=== PATIENT | female | born 1965 | race Caucasian/White ===

== ENCOUNTER 2018-07-17 11:18 | Emergency (ER) | payer BC ==
--- NOTE | 2018-07-17 11:53 | ED ---
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 Sister states that patient hit her head upon falling from the syncope. The patient rates the pain 0/10 in severity. Symptoms aggravated by nothing. Symptoms alleviated by nothing. Patient denies chest pain, SOB, headache, dizziness, nausea, and vomiting. Patient fell upon syncope and landed with her head underneath a cabinet. Patient states she has not eaten yet today but is not diabetic. Pt feels that she is back to normal. Pt has several psychiatric medications and states she has taken them as directed. Pt is scheduled to have obesity surgery at [facility] soon. Vital signs while in room: HR 77 bpm, BP 155/84, O2 sat of 98%, and temp of 98 F. Home Medications Medication Instructions Recorded Confirmed Type Levothyroxine TAB* 150 mcg PO DAILY 06/27/13 06/15/15 History Venlafaxine ER (NF) [Effexor ER 225 mg PO DAILY 06/27/13 06/15/15 History (NF)] Aspirin [Aspirin 81] 81 mg PO DAILY 09/28/13 06/15/15 History traZODone TAB* 200 mg PO BEDTIME 09/09/14 06/15/15 History Methylphenidate TAB* 76 mg PO DAILY 06/15/15 06/15/15 History oxyCODONE/Acetamin 5/325 MG* 1 tab PO Q6H PRN #20 tab MDD 4 03/01/16 Rx [Percocet 5/325 TAB*] ARIPiprazole TAB* [Abilify TAB*] 07/11/16 History Zolpidem TAB* [Ambien*] 10 mg PO PRN 07/14/18 History - History Of Current Complaint Chief Complaint: EDSyncope Time Seen by Provider: 07/17/18 11:38 Hx Obtained From: Patient, Family/Lens Coating Technician - sister Onset/Duration: Sudden Onset, Lasting Minutes, Resolved Timing: Intermittent Episode Lasting - A few seconds Context: Witnessed, Loss Of Consciousness Activity At Onset: Other - standing, visiting brother in the hospital Associated Head Trauma: Yes Aggravating Factor(s): Nothing Alleviating Factor(s): Nothing Associated Signs And Symptoms: Other - Negative chest pain, SOB, headache, dizziness, nausea, and vomiting Frequency: Episodes x___ - 1, Episodes Lasting ____ (in Mins/Days/Weeks/Years) - a few seconds - Allergies/Home Medications Allergies/Adverse Reactions: Allergies Allergy/AdvReac Type Severity Reaction Status Date / Time naproxen Allergy Itching Verified 07/17/18 14:16 Sulfa (Sulfonamide Allergy Hives Verified 07/17/18 14:16 Antibiotics) PMH/Surg Hx/FS Hx/Imm Hx Previously Healthy: No Endocrine/Hematology History: Reports: Hx Thyroid Disease Denies: Hx Diabetes Cardiovascular History: Denies: Hx Hypertension, Hx Pacemaker/ICD Respiratory History: Reports: Hx Seasonal Allergies Denies: Hx Asthma, Hx Chronic Bronchitis, Hx Chronic Obstructive Pulmonary Disease (COPD), Hx Cystic Fibrosis, Hx Lung Cancer, Hx Pleural Effusion, Hx Pneumonia, Hx Pulmonary Edema, Hx Pulmonary Embolism, Hx Sleep Apnea, Other Respiratory Problems/Disorders GI History: Reports: Hx Gall Bladder Disease - cholecystectomy, Other GI Disorders - obesity Denies: Hx Ulcer History: Denies: Hx Renal Disease Comment Only: Other Problems/Disorders - hematuria Musculoskeletal History: Reports: Hx Arthritis Sensory History: Reports: Hx Contacts or Glasses Denies: Hx Cataracts, Hx Eye Injury, Hx Eye Prosthesis, Hx Glaucoma, Hx Legally Blind, Hx Macular Degeneration, Hx Vision Problem, Hx Deafness, Hx Hearing Aid, Hx Hearing Problem, Other Sensory Impairments Opthamlomology History: Reports: Hx Contacts or Glasses Denies: Hx Cataracts, Hx Eye Injury, Hx Eye Prosthesis, Hx Glaucoma, Hx Legally Blind, Hx Macular Degeneration, Hx Vision Problem, Other Sensory Impairments Psychiatric History: Reports: Hx Anxiety, Hx Attention Deficit Hyperactivity Disorder, Hx Depression, Hx Community Mental Health Tx, Hx Suicide Attempt Denies: Hx Eating Disorder, Hx Panic Disorder, Hx of Violent Episodes Against Others - Cancer History Hx Chemotherapy: No Hx Radiation Therapy: No - Surgical History Surgery Procedure, Year, and Place: 2009 hysterectomy. 2000 cholecystectomy. c -section x2 1998 & 2001. 2003 tubal ligation Hx Anesthesia Reactions: No Infectious Disease History: No Infectious Disease History: Reports: Hx of Known/Suspected MRSA - Right Underarm Denies: Hx Hepatitis, Hx Human Immunodeficiency Virus (HIV), Hx Tuberculosis , History Other Infectious Disease, Traveled Outside the [place] in Last 30 Days - Family History Known Family History: Positive: Diabetes, Renal Disease - MOTHER GETS FREQUEST UTIS, Other - [place] - Social History Occupation: Employed Full-time Lives: With Family Alcohol Use: None Alcohol Amount: cinnamon schnapps Hx Substance Use: No Substance Use Type: Reports: None Substance Use Comment - Amount & Last Used: Unknown Hx Tobacco Use: Yes Smoking Status (MU): Heavy Every Day Tobacco Smoker Type: Cigarettes Amount Used/How Often: 1/2 PPD Length of Time of Smoking/Using Tobacco: 30 Have You Smoked in the Last Year: Yes Review of Systems Constitutional: Negative Cardiovascular: Negative Respiratory: Negative Negative: Vomiting, Nausea Neurological: Other - Negative dizziness Positive: Syncope. Negative: Headache Psychological: Normal All Other Systems Reviewed And Are Negative: Yes Physical Exam - Summary Physical Exam Summary: Appearance: Well-appearing, moderate pain distress, well-nourished Skin: Warm, color reflects adequate perfusion, dry. Abrasion 5 cm over left scapula Head: Posterior occipital 3 cm hematoma, not bleeding, nontender on palpation Eyes: Conjunctiva clear, PERRL, EOMI, no nystagmus ENT: Normal inspection Neck: Supple, no nodes, no JVD, no spinal tenderness Respiratory: Lungs clear, normal breath sounds, no respiratory distress Cardio: RRR, No murmur, pulses normal, brisk capillary refill Abdomen: Soft, nontender Bowel sounds: Present Musculoskeletal: Strength Intact/ROM intact, no calf tenderness, no edema, no spinal tenderness . Psychological: Normal Neuro: Alert, muscle tone normal, no focal deficit, moves all extremities well, sensation intact, speech normal GCS: 15 NIH Stroke Scale: 0 Triage Information Reviewed: Yes Vital Signs On Initial Exam: Initial Vitals Temp Pulse Resp BP Pulse Ox 98.0 F 67 14 121/86 97 07/17/18 11:22 07/17/18 11:22 07/17/18 11:22 07/17/18 11:22 07/17/18 11:22 Vital Signs Reviewed: Yes - [place] Coma Scale Best Eye Response: 4 - Spontaneous Best Motor Response: 6 - Obeys Commands Best Verbal Response: 5 - Oriented Coma Scale Total: 15 Diagnostics - Vital Signs Vital Signs Temp Pulse Resp BP Pulse Ox 07/17/18 11:22 98.0 F 67 14 121/86 97 - Laboratory Result Diagrams: 07/17/18 11:55 07/17/18 11:55 Lab Statement: Any lab studies that have been ordered have been reviewed, and results considered in the medical decision making process. - Radiology Shoulder XR Radiology Interpretation Completed By: Radiologist Summary of Radiographic Findings: Shoulder XR reveals, per radiologist, no evidence for fracture. ED physician has reviewed this radiology report. CXR Radiology Interpretation Completed By: Radiologist Summary of Radiographic Findings: CXR reveals, per radiologist, no evidence for active cardiopulmonary disease. ED physician has reviewed this radiology report. - CT Brain CT CT Interpretation Completed By: Radiologist Summary of CT Findings: Brain CT reveals, per radiologist, no evidence for acute intracranial abnormality. ED physician has reviewed this radiology report. - EKG 1155 Cardiac Rate: Bradycardia EKG Rhythm: Sinus Rhythm - [address] Segment: Non-Specific Ectopy: None EKG Comparison: No Significant Change - Since EKG taken on 06/16/2015 Summary of EKG Findings: An EKG at 1155 reveals sinus bradycardia at 57 with nml AV/IV CT, nml QTc, and nml axis. No significant change from EKG taken on . Re-Evaluation - Re-Evaluation First Eval Re-Evaluation Time: 14:00 Change: Improved Comment: She feels good. Patient's sister Jacqui is still with her and reports patient is back to baseline. 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 Physical Exam Findings: Abrasion 5 cm over left scapula. Posterior occipital 3 cm hematoma, not bleeding, nontender. An EKG at 1155 reveals sinus bradycardia at 57 with nml AV/IV CT, nml QTc, and nml axis. No significant change from EKG taken on 06/16/15. Shoulder XR reveals, per radiologist, no evidence for fracture. CXR reveals, per radiologist, no evidence for active cardiopulmonary disease. Brain CT reveals, per radiologist, no evidence for acute intracranial abnormality. Bloodwork obtained. Patient will be discharged with follow up from Dr. Sánchez. The patient is agreeable with this plan. - Diagnoses Differential Diagnosis/HQI/PQRI: Positive: Cerebral Vascular Accident, Coronary Artery Disease, Hyperventilation, Hypoglycemia, Hypovolemia, Metabolic Reaction , Myocardial Infarction, Medication Reaction, Pulmonary Embolism, Seizure, Transient Ischemic Attack, Vasovagal Episode Provider Diagnoses: Syncope, Head injury, Contusion of left shoulder Discharge - Sign-Out/Discharge Documenting (check all that apply): Patient Departure - Discharge home - Discharge Plan Condition: Stable Disposition: HOME Patient Education Materials: Syncope (ED) Referrals: Brad Sánchez MD [Primary Care Provider] - 2 Days Additional Instructions: We did not find any serious abnormalities on our evaluation of your syncope ( passing out spell today.) We have given you a copy of all of the tests that were done on you today. You should follow up with Dr. Sánchez in the next two days to let him know this occurred. Return to the ER if you have any new or worsening symptoms. - Billing Disposition and Condition Condition: STABLE Disposition: Home - Attestation Statements Document Initiated by Kailyn: Yes Documenting Scribe: Caron Bain Provider For Whom Andradee is Documenting (Include Credential): Dr. Chasidy Mc MD Scribe Attestation: Caron Rodriguez, scribed for Dr. Chasidy Mc MD on 07/18/18 at 0219. Scribe Documentation Reviewed: Yes Provider Attestation: The documentation as recorded by the Caron peña accurately reflects the service I personally performed and the decisions made by me, Dr. Chasidy Mc MD
[2018-07-17 12:07] LABS: ABS Basophils 0.1 10^3/ul (0-0.2); ABS Eosinophils 0.1 10^3/ul (0-0.6); ABS Lymphocytes 1.8 10^3/ul (1.0-4.8); ABS Monocytes 0.4 10^3/ul (0-0.8); ABS Neutrophils 2.9 10^3/ul (1.5-7.7); ABS Nucleated RBC 0 10^3/ul; Eosinophil % 2.7 % (0-6); Hematocrit 40 % (35-47); Hemoglobin 13.3 g/dl (12.0-16.0); Lymphocyte % 34.2 % (25-47); Mean Corpuscular HGB Conc 34 g/dl (31-36); Mean Corpuscular Hemoglobin 32 pg (27-31); Mean Corpuscular Volume 96 fL (80-97); Mean Platelet Volume 9.3 um3 (7.4-10.4); Nucleated Red Blood Cells % 0.1; Platelet Count 238 10^3/ul (150-450); Red Blood Count 4.12 10^6/ul (4.00-5.40); Red Cell Distribution Width 13 % (10.5-15); White Blood Count 5.3 10^3/ul (3.5-10.8)
[2018-07-17 12:15] LABS: INR 0.93 (0.77-1.02)
[2018-07-17 12:24] LABS: EGFR Non-African American 75.6 (>60)
--- NOTE | 2018-07-17 12:30 | RAD ---
INDICATION: Left shoulder injury. TECHNIQUE: 4 views of the left shoulder were obtained. FINDINGS: The bones are in normal alignment. No fracture is seen. Joint spaces appear maintained. IMPRESSION: NO EVIDENCE OF FRACTURE.
--- NOTE | 2018-07-17 12:32 | RAD ---
INDICATION: Syncope. COMPARISON: Comparison is made with a prior study from September 09, 2014. TECHNIQUE: Dual-energy PA and lateral views of the chest were obtained. FINDINGS: The heart is within normal limits in size. Mediastinal and hilar contours appear within normal limits. The lungs are clear. No pleural effusion is present. IMPRESSION: NO EVIDENCE FOR ACTIVE CARDIOPULMONARY DISEASE.
--- NOTE | 2018-07-17 12:42 | RAD ---
INDICATION: Syncope. COMPARISON: There are no relevant prior studies available for comparison. TECHNIQUE: Contiguous axial sections of the brain were obtained from the skull base to the vertex without contrast. FINDINGS: The ventricles, cisterns and sulci are within normal limits. No significant focal abnormality or mass effect is seen. There is no evidence for hemorrhage. No significant focal osseous abnormality is seen. The visualized portion of the paranasal sinuses and mastoid air cells appear clear. IMPRESSION: NO EVIDENCE FOR ACUTE INTRACRANIAL ABNORMALITY.
[2018-07-17 13:07] VITALS: BP 121/78
== END 2018-07-17 14:17 | disposition home or self-care (01) ==
LOC: ED 11:18
DX: S09.90XA Unspecified injury of head, initial encounter (principal); R55 Syncope and collapse; S40.012A Contusion of left shoulder, initial encounter; F17.210 Nicotine dependence, cigarettes, uncomplicated; W19.XXXA Unspecified fall, initial encounter; Y92.239 Unspecified place in hospital as the place of occurrence of the external cause; E07.9 Disorder of thyroid, unspecified
CPT/HCPCS: 36415; 70450; 71046; 80053; 80320; 82140; 83605; 83735; 83880; 84443; 84484; 85025; 85379; 85610; 85730; 93005; 99283; G0480

== ENCOUNTER 2018-08-30 11:48 | Inpatient (IN) | payer BC ==
[~2018-08-30 11:48] MED LIST: Buffered Lidocaine 0.9% SYRIN* 5 ML/SYR SYRINGE INTRADERM ONE; Dexamethasone IV* 4 MG/ML 1 ML (4 MG) IV SLOW PU ONE; Famotidine IV* 10 MG/ML 2 ML (20 mg) IV ONE
[2018-08-30] MEDS ORDERED: Heparin VIAL(*) 5000 UNITS/ML VIAL (FIVE THOUSAND) ONE (12:17)
[2018-08-30] MEDS ORDERED: ceFAZolin 1 GM ADVAN(*) 1 GM ADDV.VIAL IVPB ONE (12:18)
[2018-08-30] MEDS ORDERED: ceFAZolin 2 GM PREMIX in ORs 2 GM/50 ML BAG IVPB ONE (12:18)
[2018-08-30] MEDS ORDERED: Famotidine IV* 10 MG/ML 2 ML (20 mg) ONE (12:18)
[2018-08-30] MEDS ORDERED: Clindamycin 900 MG/D5W BAG(*) 900 MG/50 ML BAG IVPB ONE (12:18)
[2018-08-30] MEDS ORDERED: Dexamethasone IV* 4 MG/ML 1 ML (4 MG) ONE ×2 (12:18→12:29)
[2018-08-30] MEDS ORDERED: Propofol* 10 MG/ML 20 ML BTL ONE (12:34)
[2018-08-30] MEDS ORDERED: Atracurium* 10 MG/ML 10 ML VIAL ONE (12:34)
[2018-08-30] MEDS ORDERED: Midazolam* 1 MG/ML 2 ML VIAL (2 MG) ONE (12:34)
[2018-08-30] MEDS ORDERED: fentaNYL* 50 MCG/ML 2 ML VIAL (100 MCG VIAL) ONE ×3 (12:34→16:06)
[2018-08-30] MEDS ORDERED: Lidocaine 2% PF * 5 ML VIAL ONE (12:34)
[2018-08-30] MEDS ORDERED: fentaNYL* 50 MCG/ML 5 ML VIAL (250 MCG VIAL) ONE (13:12)
[2018-08-30] MEDS ORDERED: Bupivacaine 0.25% EPI 200,000* 30 ML SDV ONE (14:05)
[2018-08-30] MEDS ORDERED: PROCHLORPERAZINE INJ 5 MG/ML 2 ML VIAL IV PRN (14:57)
[2018-08-30] MEDS ORDERED: Morphine VIAL* 4 MG/ML VIAL (1 ml vial) IV PRN (14:57)
[2018-08-30] MEDS ORDERED: Ketorolac INJ* 30 MG/ML 1 ML VIAL IV PRN (14:57)
[2018-08-30] MEDS ORDERED: DiMENhydriNATE IV* 50 MG/ML VIAL IV PUSH PRN (14:57)
[2018-08-30] MEDS ORDERED: Naloxone* 0.4 MG/ML 1 ML VIAL IV PRN (14:57)
[2018-08-30] MEDS ORDERED: Acetaminophen IV 1GM/100ML * 1,000 MG/100 ML VIAL IVPB ONE (14:57)
[2018-08-30] MEDS ORDERED: Neostigmine Methylsulfate* 1 MG/ML 10 ML VIAL (1 mg/ml) ONE (15:13)
[2018-08-30] MEDS ORDERED: Glycopyrrolate IV* 0.2 MG/ML 1 ML VIAL ONE (15:13)
[2018-08-30] MEDS ORDERED: Ondansetron INJ* 2 MG/ML VIAL ONE (15:21)
[2018-08-30] MEDS ORDERED: Acetaminophen ADULT LIQ* 650 MG/20.3 ML UDC PO PRN (15:34)
[2018-08-30] MEDS ORDERED: HYDROmorphone INJ* 0.5 MG/0.5 ML SYRINGE IV PRN (15:34)
[2018-08-30] MEDS ORDERED: Ondansetron INJ* 2 MG/ML VIAL IV PRN (15:34)
--- NOTE | 2018-08-30 15:34 | OP ---
Operative Report - Blank - Operative Report Date of Operation: 08/30/18 Note: Brief Operative Note Preop Dx: Morbid Obesity Postop Dx: same Procedure: Laparoscopic sleeve gastrectomy Anesthesia: GET Surgeon: Mikayla Solar Maintenance Technician: CEE Barnett Fluids: 1200 ml RL EBL: < 25 ml Specimen: portion stomach Drains: none Findings: dictated
[2018-08-30] MEDS ORDERED: Ketorolac INJ* 30 MG/ML 1 ML VIAL ONE (15:38)
[2018-08-30] MEDS ORDERED: Acetaminophen IV 1GM/100ML * 100 ML ONE (15:39)
[2018-08-30] MEDS ORDERED: Levothyroxine INJ* 100 MCG in D5W 250 ML BAG* 250 ML IV SCH (16:00)
[2018-08-30] MEDS: fentaNYL* 50 MCG/ML 2 ML VIAL (100 MCG VIAL) IV PRN ×2 (16:06→16:38)
--- NOTE | 2018-08-30 21:26 | OP ---
CC: Brad Sánchez MD; [facility] * DATE OF OPERATION: 08/30/18 - ROOM #353 DATE OF : 69 SURGEON: Moi Degroot MD TELEVISION ANTENNA INSTALLER: CEE Pisano ANESTHESIOLOGIST: Dr. Hickey. ANESTHESIA: General endotracheal. PRE-OP DIAGNOSIS: Chronically severe obesity. POST-OP DIAGNOSIS: Chronically severe obesity. OPERATIVE PROCEDURE: Laparoscopic sleeve gastrectomy. ESTIMATED BLOOD LOSS: Minimal. IV FLUIDS: 1200 mL crystalloids. SPECIMEN: Portion of the stomach. DRAINS: None. COMPLICATIONS: None. COUNTS: The instrument, needle, and sponge counts were correct. DESCRIPTION OF PROCEDURE: The patient was brought to the operating room and placed on the table supine. Sequential compression devices were placed on both lower extremities and general anesthesia was administered. She was positioned and padded appropriately. She was prepped and draped in the usual sterile fashion. Time-out was performed. Local anesthetic was infiltrated into the skin and soft tissue prior to making each incision. Entry to the abdomen was through the left upper quadrant incision accommodating a 5-mm optical trocar. After accessing the peritoneal cavity, carbon dioxide was insufflated to a pressure of 15 mmHg. Under direct visualization, a 12- mm bladeless trocar was then placed in the right upper quadrant supraumbilical midline. A Alexandra liver retractor was placed percutaneously in the subxiphoid position, used to elevate the left lobe of the liver. A 5-mm trocar was placed laterally in the left upper quadrant. Inspection of the viscera revealed normal-appearing liver, normal-appearing stomach. No evidence of hiatal hernia and the decision was to proceed. The pylorus was identified and 6 cm proximal to this on the greater curvature, LigaSure was used to skeletonize the stomach. Lesser sac was entered and additionally, the vision of the short gastric was completed including posterior short gastric up at the cardia of the stomach. A series of staple firings were used in the Endo OSMAN staple with purple reinforced staple cartridges was then performed to create a sleeve gastrectomy over a 40- Irish bougie. Staple lines were subsequently inspected, noted to be hemostatic and intact. The transected portion of the stomach was placed to retrieval bag and retrieved through the right upper quadrant wound. Hemostasis was assured. Ports and Alexandra liver retractor were removed under direct visualization and carbon dioxide was released. Skin incisions were closed with 4-0 Monocryl in subcuticular fashion. Steri-Strips were applied. The patient tolerated this procedure well, was extubated and transferred to the recovery room in stable condition. [id number]/[facility] #: [id number] MTDD
[2018-08-30] MEDS: HYDROmorphone INJ1* 1 MG/ML SYRINGE IV PRN (22:02)
[2018-08-30] MEDS: Famotidine IV* 10 MG/ML 2 ML (20 mg) IV SLOW PU SCH (22:13)
[2018-08-30] MEDS: Heparin VIAL(*) 5000 UNITS/ML VIAL (FIVE THOUSAND) SUBCUT SCH (22:15)
[2018-08-30] MEDS: Ketorolac INJ* 30 MG/ML 1 ML VIAL IV PRN (22:18)
[2018-08-31] MEDS: Ketorolac INJ* 30 MG/ML 1 ML VIAL IV PRN ×2 (04:40→12:49)
[2018-08-31] MEDS: Heparin VIAL(*) 5000 UNITS/ML VIAL (FIVE THOUSAND) SUBCUT SCH ×3 (05:44→21:32)
[2018-08-31] MEDS ORDERED: Levothyroxine INJ* 100 MCG/5 ML VIAL IV SCH (09:00)
[2018-08-31] MEDS: HYDROmorphone INJ1* 1 MG/ML SYRINGE IV PRN (10:04)
[2018-08-31] MEDS: Famotidine IV* 10 MG/ML 2 ML (20 mg) IV SLOW PU SCH ×2 (10:04→21:26)
--- NOTE | 2018-08-31 12:00 | PN ---
Progress Note - Progress Note Date of Service: 08/31/18 Note: S: POD #1. Doing well. Pain controlled. Lenin emerald clear liqs well thus far. No N/ V. Current Medications Acetaminophen (Tylenol Adult Liq*) 650 mg PO Q6H PRN PRN Reason: Temp > 101 F Or Mild Pain Hydrocodone Bitart/Acetaminophen (Nortab 7.5/325 Liq*) 15 ml PO Q6H PRN PRN Reason: PAIN Aripiprazole (Abilify Tab*) 5 mg PO QAM KO Famotidine (Pepcid Iv*) 20 mg IV SLOW PU BID KO Last Admin: 08/31/18 10:04 Dose: 20 mg Heparin Sodium (Porcine) (Heparin Vial(*)) 5,000 units SUBCUT Q8HR KO Last Admin: 08/31/18 05:44 Dose: 5,000 units Hydromorphone HCl (Dilaudid Inj*) 0.5 mg IV Q3H PRN PRN Reason: moderate pain Hydromorphone HCl (Dilaudid Inj1s*) 1 mg IV Q3H PRN PRN Reason: moderately severe Last Admin: 08/31/18 10:04 Dose: 1 mg Potassium Chloride/Dextrose (D5w 1/2 Ns Kcl 20 Meq 1000 Ml*) 1,000 mls @ 125 mls/hr IV PER RATE KO Lactated Ringer's (Lactated Ringers 1000 Ml Bag*) 1,000 mls @ 150 mls/hr IV PER RATE KO Stop: 08/31/18 15:37 Last Admin: 08/31/18 07:10 Dose: 150 mls/hr Ketorolac Tromethamine (Toradol Inj*) 30 mg IV Q6H PRN PRN Reason: PAIN Stop: 09/01/18 15:38 Last Admin: 08/31/18 04:40 Dose: 30 mg Levothyroxine Sodium (Synthroid Tab*) 200 mcg PO QAM@0600 KO Ondansetron HCl (Zofran Inj*) 4 mg IV Q6H PRN PRN Reason: NAUSEA/VOMITING Last Admin: 08/30/18 22:08 Dose: 4 mg Trazodone HCl (Desyrel Tab*) 200 mg PO BEDTIME KO Venlafaxine HCl (Effexor Xr Cap*) 150 mg PO BID [facility] O: Vital Signs - 8 hr 08/31/18 08/31/18 08/31/18 04:37 04:39 07:24 Temperature 97.8 F 97.6 F Pulse Rate 59 64 Respiratory 18 18 16 Rate Blood Pressure 106/61 124/65 (mmHg) O2 Sat by Pulse 92 96 Oximetry 08/31/18 10:04 Temperature Pulse Rate Respiratory 16 Rate Blood Pressure (mmHg) O2 Sat by Pulse Oximetry Intake and Output Last 24 Hours 08/29/18 08/30/18 08/31/18 09/01/18 06:59 06:59 06:59 06:59 Intake Total 2380 980 Output Total 110 400 Balance 2270 580 Weight 215 lb 6.4 oz Intake: IV Fluids 2380 980 CEFAZOLIN 3GM IN 100ML NS 100 LR 2280 980 Oral 0 Output: Urine 100 400 Estimated Blood Loss 10 Heart: reg Lungs: clear Abd: lap sites clean and dry; soft; no sig tenderness A: s/p lap sleeve gastrectomy, doing well P: emerald clears; poss d/c home later today; will d/w Dr. Degroot
[2018-08-31] MEDS: Levothyroxine TAB* 100 MCG TAB PO SCH (12:36)
[2018-08-31] MEDS: ARIPiprazole TAB* 5 MG PO SCH (12:36)
[2018-08-31] MEDS: Venlafaxine EXT RELEASE CAP* 75 MG PO SCH ×2 (12:37→21:18)
[2018-08-31] MEDS: HYDROcodone/ACET. 7.5/325 LIQ* 15 ML UDC PO PRN ×2 (15:25→21:24)
[2018-08-31] MEDS: D5W 1/2 NS KCl 20 Meq 1000 ML* 1,000 ML IV SCH (19:44)
[2018-08-31] MEDS ORDERED: traZODone TAB* 100 MG PO SCH (21:00)
[2018-09-01] MEDS: HYDROcodone/ACET. 7.5/325 LIQ* 15 ML UDC PO PRN (03:15)
[2018-09-01] MEDS: D5W 1/2 NS KCl 20 Meq 1000 ML* 1,000 ML IV SCH (03:24)
[2018-09-01] MEDS: Levothyroxine TAB* 100 MCG TAB PO SCH (05:47)
[2018-09-01] MEDS: Heparin VIAL(*) 5000 UNITS/ML VIAL (FIVE THOUSAND) SUBCUT SCH (05:48)
[2018-09-01 09:25] VITALS: BP 141/74
--- NOTE | 2018-09-01 10:19 | PN ---
Progress Note - Progress Note Date of Service: 09/01/18 Note: S: POD #2. Doing well re: emerald clears and pain control. Ambulating well. O: Vital Signs - 8 hr 09/01/18 09/01/18 09/01/18 03:15 03:23 05:15 Temperature 98.4 F Pulse Rate 49 Respiratory 20 16 16 Rate Blood Pressure 136/72 (mmHg) O2 Sat by Pulse 98 Oximetry 09/01/18 07:18 Temperature 98.5 F Pulse Rate 59 Respiratory 16 Rate Blood Pressure 141/74 (mmHg) O2 Sat by Pulse 97 Oximetry Intake and Output Last 24 Hours 08/30/18 08/31/18 09/01/18 09/02/18 06:59 06:59 06:59 06:59 Intake Total 2380 4431 Output Total 110 2050 Balance 2270 2381 Weight 215 lb 6.4 oz Intake: IV Fluids 2380 3801 CEFAZOLIN 3GM IN 100ML NS 100 D5W 1/2 NS 20 meq KCL 960 LR 2280 2841 Oral 0 630 Output: Urine 100 2050 Estimated Blood Loss 10 Other: # Bowel Movements 0 Gen: NAD; appears comfortable Heart: reg Lungs: clear Abd: lap sites ok; soft; min incisional tenderness A: s/p lap sleeve gastrectomy, doing well P: home today; instructions reviewed; f/u at [facility] next week as sched
[2018-09-01] MEDS: ARIPiprazole TAB* 5 MG PO SCH (10:28)
[2018-09-01] MEDS: Venlafaxine EXT RELEASE CAP* 75 MG PO SCH (10:28)
[2018-09-01] MEDS: Famotidine IV* 10 MG/ML 2 ML (20 mg) IV SLOW PU SCH (10:56)
--- NOTE | 2018-09-01 10:57 | DS ---
CC: Dr. Brad Sánchez * DATE OF ADMISSION: 08/30/2018. DATE OF DISCHARGE: 09/01/2018. ATTENDING SURGEON: Dr. Moi Degroot * (CEE Pisano dictating). HOSPITAL COURSE: Please refer to admission history and physical and operative note for details. Briefly, the patient was taken to the operating room on 08/30 at which time she underwent a laparoscopic sleeve gastrectomy. Surgery and postoperative course have been otherwise uneventful. The patient has advanced in terms of tolerance of bariatric clear liquids and pain control. PHYSICAL EXAMINATION: General: Well-nourished, in no acute distress. Vital Signs: As of the morning of discharge, temperature 98.5, blood pressure 141/74, pulse 59, respirations 16, room air saturation 97 percent. Heart: Regular rate and rhythm. Lungs: Clear to auscultation. Abdomen: Laparoscopic incision sites clean and dry. No evidence of wound infection. Minimal incisional tenderness. IMPRESSION: Status post laparoscopic sleeve gastrectomy, doing well. PLAN: Home today. Instructions were reviewed regarding wound care, diet, and activities. She has a follow-up scheduled at the [facility] next week. CEE PISANO [id number]/[facility] #: [id number] MTDD
== END 2018-09-01 12:18 | disposition home or self-care (01) | DRG 403 ==
LOC: AA 11:48 → SSU 17:21
PROVIDERS: ADMIT Surgery; ATTEND Surgery
PROC: 0DB64Z3 Excision of Stomach, Percutaneous Endoscopic Approach, Vertical (ICD-10-PCS; principal; 2018-08-30 15:30)
DX: E66.01 Morbid (severe) obesity due to excess calories (principal); F41.9 Anxiety disorder, unspecified; G47.33 Obstructive sleep apnea (adult) (pediatric); E03.9 Hypothyroidism, unspecified; F32.9 Major depressive disorder, single episode, unspecified; M19.90 Unspecified osteoarthritis, unspecified site; Z90.49 Acquired absence of other specified parts of digestive tract; Z80.1 Family history of malignant neoplasm of trachea, bronchus and lung; Z80.0 Family history of malignant neoplasm of digestive organs; Z80.8 Family history of malignant neoplasm of other organs or systems; Z83.3 Family history of diabetes mellitus; Z68.38 Body mass index [BMI] 38.0-38.9, adult; Z88.2 Allergy status to sulfonamides; Z88.8 Allergy status to other drugs, medicaments and biological substances; Z81.8 Family history of other mental and behavioral disorders; Z83.49 Family history of other endocrine, nutritional and metabolic diseases; Z82.61 Family history of arthritis; Z72.89 Other problems related to lifestyle; Z87.891 Personal history of nicotine dependence; Z90.711 Acquired absence of uterus with remaining cervical stump
CPT/HCPCS: 43775; 88307; A9270-GY; J0690; J1100; J1170; J1644; J1885; J2250; J2405; J2704; J2710; J3010

== ENCOUNTER 2021-06-11 22:43 | Inpatient (IN) ==
[2021-06-12 00:21] LABS: ABS Basophils 0.1 10^3/ul (0-0.2); ABS Eosinophils 0.1 10^3/ul (0-0.6); ABS Lymphocytes 1.8 10^3/ul (1.0-4.8); ABS Monocytes 0.5 10^3/ul (0-0.8); ABS Neutrophils 4.3 10^3/ul (1.5-7.7); Eosinophil % 1.4 %; Hematocrit 43 % (35-47); Hemoglobin 14.6 g/dL (12.0-16.0); Lymphocyte % 26.7 %; Mean Corpuscular HGB Conc 34 g/dL (31-36); Mean Corpuscular Hemoglobin 34 pg (27-31); Mean Corpuscular Volume 99 fL (80-97); Mean Platelet Volume 9.1 fL (7.4-10.4); Platelet Count 208 10^3/uL (150-450); Red Blood Count 4.38 10^6 /uL (3.70-4.87); Red Cell Distribution Width 13 % (10-15); White Blood Count 6.8 10^3/uL (3.5-10.8)
[2021-06-12 01:01] LABS: Acetaminophen < 15 mcg/mL; Alcohol, S < 13 mg/dL (<13); Salicylate < 2.50 mg/dL (<30)
[2021-06-12 01:45] LABS: Urine Benzodiazepine Screen None Detected (None Detect); Urine Cannabinoids Screen None Detected (None Detect); Urine Opiates Screen None Detected (None Detect)
[2021-06-12 02:10] LABS: Urine Appearance Clear; Urine Bilirubin Negative (Negative); Urine Blood 1+ (Negative); Urine Color Straw; Urine Glucose Negative (Negative); Urine Ketones Negative (Negative); Urine Nitrite Negative (Negative); Urine Protein Negative (Negative); Urine Specific Gravity 1.002 (1.002-1.030); Urine Urobilinogen Negative (Negative)
[2021-06-12 02:13] LABS: Urine Bacteria Absent (Absent); Urine Red Blood Cell Trace(0-2/hpf) (Absent); Urine White Blood Cell Absent (Absent)
[2021-06-12 02:24] LABS: ALT 11 U/L (7-52); AST 16 U/L (13-39); Albumin 4.6 g/dL (3.2-5.2); Albumin/Globulin Ratio 2.1 (1-3); Alkaline Phosphatase 84 U/L (35-149); Anion Gap 11 mmol/L (2-11); Blood Urea Nitrogen 9 mg/dL (6-24); CO2 Carbon Dioxide 24 mmol/L (22-32); Calcium 9.6 mg/dL (8.6-10.3); Chloride 104 mmol/L (101-111); EGFR Non-African American 79.3 (>60); Globulin 2.2 g/dL (2-4); Glucose 127 mg/dL (70-100); Potassium 3.6 mmol/L (3.5-5.0); Sodium 139 mmol/L (135-145); Total Protein 6.8 g/dL (6.4-8.9)
[2021-06-12 10:43] LABS: Rapid COVID-19 Molecular Undetected (Undetected)
[2021-06-12] MEDS ORDERED: Al Hydrox/Mg Hydrox/Simet LIQ 30 ML UDC PO PRN (11:37)
[2021-06-12] MEDS ORDERED: Nicotine Lozenge mini 4 MG LOZNG.MINI MT PRN (15:54)
[2021-06-12] MEDS ORDERED: Nicotine GUM 4MG FRUIT FLAVOR PO PRN (15:54)
[2021-06-12] MEDS: Nicotine PATCH 21 MG/24 HR PATCH TRANSDERM SCH (21:12)
[2021-06-13] MEDS ORDERED: Flu vaccine *QUAD* 2021-22* 0.5 ML SYRINGE IM ONE (09:00)
[2021-06-13] MEDS: Vitamin THERAPEUTIC TAB PO SCH (09:25)
[2021-06-13] MEDS: Nicotine PATCH 21 MG/24 HR PATCH TRANSDERM SCH (09:27)
[2021-06-14] MEDS: Nicotine PATCH 21 MG/24 HR PATCH TRANSDERM SCH (09:25)
[2021-06-14] MEDS: Vitamin THERAPEUTIC TAB PO SCH (11:15)
[2021-06-15] MEDS: Nicotine PATCH 21 MG/24 HR PATCH TRANSDERM SCH (09:12)
[2021-06-15] MEDS: Vitamin THERAPEUTIC TAB PO SCH (12:43)
[2021-06-16] MEDS: Vitamin THERAPEUTIC TAB PO SCH (08:15)
[2021-06-16] MEDS: Nicotine PATCH 21 MG/24 HR PATCH TRANSDERM SCH (08:16)
[2021-06-16 10:25] VITALS: BP 87/56
== END 2021-06-16 11:10 | disposition home or self-care (01) | DRG 885 ==
LOC: ED 22:43 → BSU 06-12 12:56
PROVIDERS: ADMIT Psychiatry & Neurology Psychiatry; ATTEND Psychiatry & Neurology Psychiatry